=== PATIENT | male | born 1995 | race Caucasian/White ===

== ENCOUNTER 2021-02-16 19:36 | Emergency (ER) | payer SELFPAY | END 2021-02-17 00:48 | disposition home or self-care (01) | LOC: ERS 19:36 | DX: F10.129 Alcohol abuse with intoxication, unspecified (principal) | CPT/HCPCS: 99284 ==

== ENCOUNTER 2021-02-27 18:57 | Emergency (ER) | payer SELFPAY | END 2021-02-27 20:20 | LOC: ERS 18:57 | DX: F10.10 Alcohol abuse, uncomplicated (principal); F17.210 Nicotine dependence, cigarettes, uncomplicated; F17.220 Nicotine dependence, chewing tobacco, uncomplicated | CPT/HCPCS: 93005 ==